=== PATIENT | male | born 1970 | race Caucasian/White ===

== ENCOUNTER 2024-01-31 17:41 | Emergency (ER) | payer MEDICARE, OTHER ==
[2024-01-31] MEDS ORDERED: Ketorolac Tromethamine 30 MG (1 mL) VIAL ONE (18:24)
[2024-01-31] MEDS ORDERED: predniSONE 20 MG TAB ONE (18:24)
== END 2024-01-31 18:31 | disposition home or self-care (01) ==
LOC: BURERS 17:41
DX: M54.50 Low back pain, unspecified (principal); I10 Essential (primary) hypertension; E11.9 Type 2 diabetes mellitus without complications
CPT/HCPCS: 96372; 99283; J1885; J7512